=== PATIENT | male | born 1950 | race American Indian/Alaskan Native ===

== ENCOUNTER 2018-01-23 08:32 | Outpatient (CLI) | payer MEDICAID ==
--- NOTE | 2018-01-23 11:43 | Fluoroscopy Report ---
MODIFIED BARIUM SWALLOW History: dysphagia. Findings: Video radiography was provided by the radiologist for speech therapy to assess the swallowing mechanism. 1 fluoroscopic image was captured. Impression: Successful modified barium swallow.
== END 2018-01-23 08:33 | disposition home or self-care (01) ==
LOC: PT 08:32
PROVIDERS: ATTEND Family Medicine
DX: R13.10 Dysphagia, unspecified (principal); E11.9 Type 2 diabetes mellitus without complications; R41.82 Altered mental status, unspecified; F01.50 Vascular dementia, unspecified severity, without behavioral disturbance, psychotic disturbance, mood disturbance, and anxiety; E78.5 Hyperlipidemia, unspecified; I10 Essential (primary) hypertension; E07.9 Disorder of thyroid, unspecified; Z86.73 Personal history of transient ischemic attack (TIA), and cerebral infarction without residual deficits
CPT/HCPCS: 74230

== ENCOUNTER 2019-03-02 10:52 | Inpatient (IN) | payer MEDICARE ==
--- NOTE | 2019-03-02 11:24 | Emergency Department Report ---
HPI - General Time Seen by Provider: 03/02/19 11:15 - HPI HPI: 68-year-old -[place] male presents to the emergency department via EMS from his longterm at [facility] for the concern of some altered mental status and lethargy. The patient has a past medical history of non-insulin depended diabetes, CVA with left-sided hemiparesis, GERD, hyperlipidemia, hypertension. Apparently, per the longterm but through EMS, the patient usually wakes up at 8 AM and this time was sleeping much later. Once he was awake he still seemed sleepy or altered and was nonverbal at that time. Currently the patient is awake and is talking, but it is unknown whether he is at his baseline. Patient is able to tell me his name, date of and says he is unsure why he was sent in. Shortly after arrival, the patient's daughter came to bedside and says that he is altered in comparison to his baseline. She says that usually, he is constantly calling her on the phone, and when she visits he is able to hold a normal conversation and give details about himself and his symptoms. ED Past Medical Hx - Past Medical History Hx Hypertension: Yes Hx CVA: Yes Hx Diabetes: Yes Hx Renal Disease: No Hx Arthritis: No Hx Seizures: No Hx Asthma: No Additional medical history: Aphasia - Surgical History Hx Pacemaker: No Additional Surgical History: Hand surgery - Social History Smoking Status: Never Smoker - Medications Home Medications: Home Medications Medication Instructions Recorded Confirmed Last Taken Type Aspirin 325 mg PO QDAY 01/11/15 01/11/15 Unknown History Atorvastatin 20 mg PO QDAY 01/11/15 01/11/15 Unknown History Dulcolax tab 5 mg PO QHS 01/11/15 01/11/15 Unknown History Folic Acid 1 mg PO QDAY 01/11/15 01/11/15 Unknown History HumaLOG 1 dose SQ 3XW 01/11/15 01/11/15 Unknown History Hydrochlorothiazide 12.5 mg PO QDAY 01/11/15 01/11/15 Unknown History Metoclopramide 10 mg PO QDAY 01/11/15 01/11/15 Unknown History Multivitamin Liquid 5 ml PO QDAY 01/11/15 01/11/15 Unknown History Omeprazole 20 mg PO QDAY 01/11/15 01/11/15 Unknown History Thiamine 100 mg PO QDAY 01/11/15 01/11/15 Unknown History Zoloft 75 mg PO QDAY 01/11/15 01/11/15 Unknown History Memantine [Namenda] 5 mg PO QDAY #30 tablet 01/12/15 Unknown Rx ED Review of Systems ROS: Stated complaint: LETHARGIC/NONVERBAL Other details as noted in HPI Comment: Unobtainable due to pts medical conditions Physical Exam - Physical Exam Physical Exam: GENERAL: The patient is well-developed well-nourished. HENT: Normocephalic. Atraumatic. Patient has moist mucous membranes. EYES: Extraocular motions are intact. Pupils equal reactive to light bilaterally. NECK: Supple. Trachea is midline. CHEST/LUNGS: Clear to auscultation. There is no respiratory distress noted. HEART/CARDIOVASCULAR: Regular. There is no tachycardia. There is no murmur. ABDOMEN: Abdomen is soft, nontender. Patient has normal bowel sounds. There is no abdominal distention. SKIN: Skin is warm and dry. NEURO: The patient is awake and cooperative. The patient has no focal neurologic deficits. The patient is not very conversive but does tell me his name and date of . Chronic left-sided hemiparesis. MUSCULOSKELETAL: There are contractures of the left upper extremity and bilateral feet. ED Medical Decision Making - Lab Data Result diagrams: 03/02/19 11:28 03/02/19 11:28 - EKG Data -: EKG Interpreted by Me EKG shows normal: sinus rhythm, axis (left axis deviation), intervals, QRS comp lexes (LAFB), ST-T waves Rate: normal - EKG Data When compared to previous EKG there are: previous EKG unavailable Interpretation: other (sinus rhythm, left axis deviation, left anterior fascicular block) - Radiology Data Radiology results: report reviewed CT HEAD WITHOUT CONTRAST INDICATION / CLINICAL INFORMATION: Altered mental status. TECHNIQUE: All CT scans at this location are performed using CT dose reduction for ALARA by means of automated exposure control. COMPARISON: CT dated 01/11/15 FINDINGS: HEMORRHAGE: None. EXTRA-AXIAL SPACES: Mildly prominent likely related to cortical atrophy. VENTRICULAR SYSTEM: Mildly prominent but unchanged. CEREBRAL PARENCHYMA: Moderate periventricular white matter hypodensities likely represent microangiopathy. No change. No acute territorial infarct. MIDLINE SHIFT OR HERNIATION: None. CEREBELLUM / BRAINSTEM: No significant abnormality. ORBITS: Normal as visualized. SOFT TISSUES of HEAD: No significant abnormality. CALVARIUM: No significant abnormality. PARANASAL SINUSES / MASTOID AIR CELLS: Mild mucosal thickening in several ethmoid air cells. ADDITIONAL FINDINGS: None. IMPRESSION: 1. No acute intracranial abnormality. 2. Chronic and age-related findings. No significant change. RIGHT FOOT 3 VIEW(S) INDICATION / CLINICAL INFORMATION: right foot pain COMPARISON: None available. FINDINGS: BONES / JOINT(S): No acute fracture or subluxation. Pes cavus is suspected on this nonweightbearing study. Moderate midfoot degenerative arthrosis. Patient is subjectively osteopenic. SOFT TISSUES: No significant abnormality. ADDITIONAL FINDINGS: None. CHEST 1 VIEW 03/02/2019 11:35 AM INDICATION / CLINICAL INFORMATION: Altered mental status. Lethargy. COMPARISON: 10/15/11 FINDINGS: SUPPORT DEVICES: None. HEART / MEDIASTINUM: No significant abnormality. LUNGS / PLEURA: Left basilar parenchymal density may represent infiltrate such as pneumonia. No pneumothorax. ADDITIONAL FINDINGS: No significant additional findings. IMPRESSION: 1. Possible left lung base pneumonia. - Medical Decision Making This patient was sent in by the longterm facility after he appeared let hargic and altered to them. Prior to his daughter being at bedside, the patient was awake and was talking to me but does not say much. He has a chronic left- sided hemiparesis. However the daughter did show up and says that the patient is altered compared to his baseline as he is usually very conversive and oriented. CT scan of his head without contrast did not show any bleed, shift, mass, ischemia or any other acute processes. An x-ray was done of the right foot that shows a chronic deformity but no acute fracture or dislocation. Patient's labs show some mild renal insufficiency but do not show the etiology of his symptoms. Patient was given some IV fluid resuscitation and has been re evaluated and appears to be showing some improvement. He is more conversive with his daughter. We were attempting to obtain urine to test for a urinary tract infection as a possible reason for his transient lethargy or change in mental status. The patient does make urine as he wet to bed but we were unable to collect it and were unsuccessful with straight cath. Despite the fact the patient is showing some improvement, but he does have a history of previous CVA and did have some altered mental status. He will be admitted to the hospital for further evaluation and treatment of his extensive for admission by the hospitalist, Dr. Mtz. - Differential Diagnosis CVA, TIA, UTI, sepsis Critical Care Time: No Critical care attestation.: If time is entered above; I have spent that time in minutes in the direct care of this critically ill patient, excluding procedure time. ED Disposition Clinical Impression: History of CVA (cerebrovascular accident), Mild renal insufficiency, Hemiparesis affecting left side as late effect of cerebrovascular accident Altered mental status Qualifiers: Altered mental status type: unspecified Qualified Code(s): R41.82 - Altered mental status, unspecified Disposition: DC-[id number] OP ADMIT IP TO THIS HOSP Is pt being admited?: Yes Condition: Fair Referrals: MAMADOU RAO MD [Primary Care Provider] - 3-5 Days Time of Disposition: 19:33
[2019-03-02 11:43] LABS: Basophils % (Auto) 0.7 % (0.0-1.8); Eosinophils # (Auto) 0.1 K/mm3 (0.0-0.4); Eosinophils % (Auto) 1.9 % (0.0-4.3); Hematocrit 34.7 % (35.5-45.6); Hemoglobin 11.5 gm/dl (11.8-15.2); Lymphocytes # (Auto) 2.3 K/mm3 (1.2-5.4); Lymphocytes % (Auto) 31.9 % (13.4-35.0); Mean Corpuscular HGB Conc 33 % (32-34); Mean Corpuscular Volume 85 fl (84-94); Monocytes # (Auto) 0.8 K/mm3 (0.0-0.8); Monocytes % (Auto) 10.9 % (0.0-7.3); Platelet Count 287 K/mm3 (140-440); Red Blood Count 4.08 M/mm3 (3.65-5.03); Red Cell Distribution Width 14.2 % (13.2-15.2)
[2019-03-02 12:06] LABS: INR 1.01 (0.87-1.13); Partial Thromboplastin Time 24.7 Sec. (24.2-36.6)
[2019-03-02 12:07] LABS: Alanine Aminotransferase 7 units/L (7-56); Albumin 3.6 g/dL (3.9-5); BUN/Creatinine Ratio 11; Blood Urea Nitrogen 18 mg/dL (9-20); Calcium 9.5 mg/dL (8.4-10.2); Hemolysis Index 6
--- NOTE | 2019-03-02 12:26 | XRay Report ---
RIGHT FOOT 3 VIEW(S) INDICATION / CLINICAL INFORMATION: right foot pain COMPARISON: None available. FINDINGS: BONES / JOINT(S): No acute fracture or subluxation. Pes cavus is suspected on this nonweightbearing s tudy. Moderate midfoot degenerative arthrosis. Patient is subjectively osteopenic. SOFT TISSUES: No significant abnormality. ADDITIONAL FINDINGS: None. Signer Name: Glo Pacheco MD Signed: 03/02/2019 12:22 PM Workstation Name: [id number]
--- NOTE | 2019-03-02 12:53 | XRay Report ---
CHEST 1 VIEW 03/02/2019 11:35 AM INDICATION / CLINICAL INFORMATION: Altered mental status. Lethargy. COMPARISON: 10/15/11 FINDINGS: SUPPORT DEVICES: None. HEART / MEDIASTINUM: No significant abnormality. LUNGS / PLEURA: Left basilar parenchymal density may represent infiltrate such as pneumonia. No pneum othorax. ADDITIONAL FINDINGS: No significant additional findings. IMPRESSION: 1. Possible left lung base pneumonia. Signer Name: Glo Pacheco MD Signed: 03/02/2019 12:48 PM Workstation Name: [id number]
--- NOTE | 2019-03-02 13:36 | Cat Scan Report ---
CT HEAD WITHOUT CONTRAST INDICATION / CLINICAL INFORMATION: Altered mental status. TECHNIQUE: All CT scans at this location are performed using CT dose reduction for ALARA by means of automated e xposure control. COMPARISON: CT dated 01/11/15 FINDINGS: HEMORRHAGE: None. EXTRA-AXIAL SPACES: Mildly prominent likely related to cortical atrophy. VENTRICULAR SYSTEM: Mildly prominent but unchanged. CEREBRAL PARENCHYMA: Moderate periventricular white matter hypodensities likely represent microangiop athy. No change. No acute territorial infarct. MIDLINE SHIFT OR HERNIATION: None. CEREBELLUM / BRAINSTEM: No significant abnormality. ORBITS: Normal as visualized. SOFT TISSUES of HEAD: No significant abnormality. CALVARIUM: No significant abnormality. PARANASAL SINUSES / MASTOID AIR CELLS: Mild mucosal thickening in several ethmoid air cells. ADDITIONAL FINDINGS: None. IMPRESSION: 1. No acute intracranial abnormality. 2. Chronic and age-related findings. No significant change. Signer Name: Glo Pacheco MD Signed: 03/02/2019 1:32 PM Workstation Name: [id number]
[2019-03-02] MEDS ORDERED: NACL 0.9% 500 ML 500 ML IV ONE ×3 (13:48→18:40)
--- NOTE | 2019-03-02 18:50 | History and Physical Report ---
History of Present Illness Chief complaint: He is acting more confused History of present illness: 68 YO Male Half-Way Facility Resident at [facility] with HTN, CVA with LHP, DM,GERD, HLD presents to ED for evaluation. Pt is unable to provide history due to dysarthria. Pt history provided by daughter who is at bedside during exam and interview. As per daughter, the patient was in his usual state of health at bedtime around 2130 hrs. Pt was found by [facility] staff around 0800 hrs to have difficulty speaking, confused, with decreased movement. EMS notified and upon arrival the patient was found to have a neurologic deficit. A code stroke was called and the patient transported to [facility]. Pt seen and evaluated in ED and found to have symptoms consistent with CVA, Acute Kidney Injury, and hyperkalemia. Pt treated with supportive care. Pt initiated on CVA protocol and admitted to telemetry. Neurology consulted. Prior admission on 01/11/15 reviewed. All listed medication reconciled at time of admission. Past History Past Medical History: diabetes, GERD, hypertension, hyperlipidemia, stroke Past Surgical History: Other (Hand surgery) Social history: single. denies: smoking, alcohol abuse, prescription drug abuse Family history: hypertension Medications and Allergies Allergies Allergy/AdvReac Type Severity Reaction Status Date / Time No Known Allergies Allergy Verified 01/11/15 15:36 Home Medications Medication Instructions Recorded Confirmed Last Taken Type Aspirin 325 mg PO QDAY 01/11/15 03/03/19 Unknown History Atorvastatin 20 mg PO QDAY 01/11/15 03/03/19 Unknown History Dulcolax tab 5 mg PO QHS 01/11/15 03/03/19 Unknown History Folic Acid 1 mg PO QDAY 01/11/15 03/03/19 Unknown History HumaLOG 1 dose SQ 3XW 01/11/15 03/03/19 Unknown History Hydrochlorothiazide 12.5 mg PO QDAY 01/11/15 03/03/19 Unknown History Metoclopramide 10 mg PO QDAY 01/11/15 03/03/19 Unknown History Multivitamin Liquid 5 ml PO QDAY 01/11/15 03/03/19 Unknown History Omeprazole 20 mg PO QDAY 01/11/15 03/03/19 Unknown History Thiamine 100 mg PO QDAY 01/11/15 03/03/19 Unknown History Zoloft 75 mg PO QDAY 01/11/15 03/03/19 Unknown History Memantine [Namenda] 5 mg PO QDAY #30 tablet 01/12/15 03/03/19 Unknown Rx Active Meds: Active Medications Sodium Chloride (Nacl 0.9% 500 Ml) 500 mls @ 999 mls/hr IV ONCE ONE Stop: 03/02/19 19:10 Last Admin: 03/02/19 18:41 Dose: 999 mls/hr Documented by: Review of Systems ROS unobtainable: due to mental status Exam - Constitutional Vitals: Temp Pulse Resp BP Pulse Ox 97.9 F 92 H 18 143/82 94 03/02/19 11:13 03/02/19 18:38 03/02/19 18:38 03/02/19 18:38 03/02/19 18:38 General appearance: Present: mild distress - EENT Eyes: Present: PERRL ENT: hearing intact, clear oral mucosa, poor dentition - Neck Neck: Present: supple, normal ROM - Respiratory Respiratory effort: normal Respiratory: bilateral: CTA - Cardiovascular Heart Sounds: Present: S1 & S2. Absent: rub, click - Extremities Extremities: pulses symmetrical, No edema Peripheral Pulses: within normal limits - Abdominal General gastrointestinal: Present: soft, non-tender, non-distended, normal bowel sounds Male genitourinary: Present: normal - Integumentary Integumentary: Present: clear, warm, dry - Musculoskeletal Musculoskeletal: generalized weakness - Psychiatric Psychiatric: no appropriate mood/affect, no intact judgment & insight, no memory intact - Neurologic Neurologic: no CNII-XII intact, focal deficits, no moves all extremities, no gait normal Results - Labs CBC & Chem 7: 03/02/19 11:28 03/02/19 11:28 Labs: Abnormal lab results 03/02/19 03/02/19 03/02/19 Range/Units 11:28 11:28 11:28 Hgb 11.5 L (11.8-15.2) gm/dl Hct 34.7 L (35.5-45.6) % Snyder % (Auto) 10.9 H (0.0-7.3) % Sodium 133 L (137-145) mmol/L Potassium 5.1 H (3.6-5.0) mmol/L Chloride 95.3 L (98-107) mmol/L Creatinine 1.6 H (0.8-1.5) mg/dL Ammonia 24.0 L (25-60) umol/L Albumin 3.6 L (3.9-5) g/dL Assessment and Plan - Patient Problems (1) CVA (cerebral vascular accident) Current Visit: Yes Status: Acute Qualifiers: Laterality of affected vessel: unspecified Plan to address problem: CVA protocol: Admit to telemetry, CT Head, MRI brain, MRA brain, Echo, Carotid doppler, PT/OT/Speech Therapy, Neuro checks, lipid panel, antiplatelet therapy, neurology consult. (2) Encephalopathy Current Visit: Yes Status: Acute Plan to address problem: CT head, neuro checks, seizure precautions, supportive care, BMP (3) MICHELLE (acute kidney injury) Current Visit: Yes Status: Acute Plan to address problem: IVF resuscitation therapy, monitor uop q shift, (4) Diabetes Current Visit: Yes Status: Acute Plan to address problem: ADA diet as tolerate, Insulin, accucheck, hypoglycemia protocol (5) GERD (gastroesophageal reflux disease) Current Visit: Yes Status: Acute (6) DVT prophylaxis Current Visit: Yes Status: Acute Plan to address problem: PPI therapy, (7) DVT prophylaxis Current Visit: Yes Status: Acute Plan to address problem: SCD to BLE while in bed, Prophylactic heparin
[2019-03-02] MEDS ORDERED: ZOFRAN IV PRN (18:51)
[2019-03-02] MEDS ORDERED: SODIUM CHLORIDE FLUSH SYRINGE 10 ML IV PRN (18:51)
[2019-03-02] MEDS ORDERED: MILK OF MAGNESIA PO PRN (18:51)
[2019-03-02] MEDS ORDERED: DULCOLAX PR PRN (18:51)
[2019-03-02] MEDS ORDERED: TYLENOL PO PRN (18:51)
[2019-03-02] MEDS ORDERED: REGLAN PO PRN (18:51)
[2019-03-02] MEDS ORDERED: PROVENTIL IH PRN (18:51)
[2019-03-02] MEDS ORDERED: PHENERGAN PR PRN (18:51)
[2019-03-02] MEDS ORDERED: DULCOLAX 5 MG PO SCH (22:00)
[2019-03-03 05:55] LABS: Chol/HDL Ratio 3.29 %
[2019-03-03 08:48] LABS: Bacteria,Urine 1+ /HPF (Negative); Bilirubin,Urine NEG (Negative); Blood,Urine LG (Negative); Calcium Oxalate Crystals,Urine FEW; Color,Urine Yellow (Yellow); Protein,Urine <15 mg/dL mg/dL (Negative)
[2019-03-03] MEDS ORDERED: NON-FORMULARY (Folic Acid 1 MG) PO SCH (10:00)
[2019-03-03] MEDS ORDERED: MULTIVITAMIN PO SCH (10:00)
[2019-03-03] MEDS ORDERED: SERTRALINE PO SCH (10:00)
[2019-03-03] MEDS ORDERED: NON-FORMULARY (Metoclopramide 10 MG) PO SCH (10:00)
[2019-03-03] MEDS ORDERED: NON-FORMULARY (Thiamine 100 MG) PO SCH (10:00)
[2019-03-03] MEDS ORDERED: NON-FORMULARY (Omeprazole 20 MG) PO SCH (10:00)
[2019-03-03] MEDS: ASPIRIN PO SCH (10:13)
[2019-03-03] MEDS: VITAMIN B-1 PO SCH (10:13)
[2019-03-03] MEDS: ZOLOFT PO SCH (10:13)
[2019-03-03] MEDS: PROTONIX PO SCH (10:13)
[2019-03-03] MEDS: FOLVITE PO SCH (10:13)
[2019-03-03] MEDS: REGLAN PO SCH (10:13)
[2019-03-03] MEDS: NAMENDA PO SCH (10:13)
[2019-03-03] MEDS: HEPARIN SUB-Q SCH ×2 (10:14→21:48)
[2019-03-03] MEDS: Centrum Liq PO SCH (10:14)
--- NOTE | 2019-03-03 11:27 | Progress Note ---
Assessment and Plan Assessment and plan: CVA/TIA. Follow-up MRI/MRA brain, echocardiogram and carotid Dopplers. PT/OT evaluation pending. Neurology consultation. Encephalopathy. Resolved. Patient appears to be back to baseline. Acute kidney injury. Etiology secondary to vasomotor nephropathy/dehydration. Baseline creatinine 0.6. Continue IV fluid hydration and follow-up BMP in the morning. If no improvement, consider renal ultrasound. Diabetes mellitus type 2. Continue Accu-Cheks and sliding scale insulin. GERD. Continue PPI. History Interval history: Patient's family reports patient is back to his baseline with regards to his neurological status. Hospitalist Physical - Constitutional Vitals: Temp Pulse Resp BP Pulse Ox 97.4 F L 87 20 117/75 98 03/03/19 03:44 03/03/19 03:44 03/03/19 03:44 03/03/19 03:44 03/03/19 03:44 General appearance: Present: no acute distress - EENT Eyes: Present: PERRL, EOM intact ENT: hearing intact, clear oral mucosa, dentition normal - Neck Neck: Present: supple, normal ROM - Respiratory Respiratory effort: normal Respiratory: bilateral: CTA - Cardiovascular Rhythm: regular Heart Sounds: Present: S1 & S2. Absent: gallop, rub - Extremities Extremities: no ischemia, No edema, Full ROM - Abdominal General gastrointestinal: soft, non-tender, non-distended, normal bowel sounds - Integumentary Integumentary: Present: clear, warm, dry - Neurologic Neurologic: CNII-XII intact, moves all extremities, other (left hemiparesis--residual from previous CVA) Results - Labs CBC & Chem 7: 03/02/19 11:28 03/02/19 11:28 Labs: Laboratory Last Values WBC 7.3 K/mm3 (4.5-11.0) 03/02/19 11:28 RBC 4.08 M/mm3 (3.65-5.03) 03/02/19 11:28 Hgb 11.5 gm/dl (11.8-15.2) L 03/02/19 11:28 Hct 34.7 % (35.5-45.6) L 03/02/19 11:28 MCV 85 fl (84-94) 03/02/19 11:28 MCH 28 pg (28-32) 03/02/19 11:28 MCHC 33 % (32-34) 03/02/19 11:28 RDW 14.2 % (13.2-15.2) 03/02/19 11:28 Plt Count 287 K/mm3 (140-440) 03/02/19 11:28 Lymph % (Auto) 31.9 % (13.4-35.0) 03/02/19 11:28 Williams % (Auto) 10.9 % (0.0-7.3) H 03/02/19 11:28 Eos % (Auto) 1.9 % (0.0-4.3) 03/02/19 11:28 Baso % (Auto) 0.7 % (0.0-1.8) 03/02/19 11:28 Lymph # 2.3 K/mm3 (1.2-5.4) 03/02/19 11:28 Williams # 0.8 K/mm3 (0.0-0.8) 03/02/19 11:28 Eos # 0.1 K/mm3 (0.0-0.4) 03/02/19 11:28 Baso # 0.0 K/mm3 (0.0-0.1) 03/02/19 11:28 Seg Neutrophils % 54.6 % (40.0-70.0) 03/02/19 11:28 Seg Neutrophils # 4.0 K/mm3 (1.8-7.7) 03/02/19 11:28 PT 13.0 Sec. (12.2-14.9) 03/02/19 11:28 INR 1.01 (0.87-1.13) 03/02/19 11:28 APTT 24.7 Sec. (24.2-36.6) 03/02/19 11:28 Sodium 133 mmol/L (137-145) L 03/02/19 11:28 Potassium 5.1 mmol/L (3.6-5.0) H 03/02/19 11:28 Chloride 95.3 mmol/L (98-107) L 03/02/19 11:28 Carbon Dioxide 25 mmol/L (22-30) 03/02/19 11:28 18 mmol/L 03/02/19 11:28 BUN 18 mg/dL (9-20) 03/02/19 11:28 1.6 mg/dL (0.8-1.5) H 03/02/19 11:28 Estimated GFR 52 ml/min 03/02/19 11:28 11 % 03/02/19 11:28 Glucose 85 mg/dL (75-100) 03/02/19 11:28 Calcium 9.5 mg/dL (8.4-10.2) 03/02/19 11:28 0.90 mg/dL (0.1-1.2) 03/02/19 11:28 AST 14 units/L (5-40) 03/02/19 11:28 ALT 7 units/L (7-56) 03/02/19 11:28 74 units/L (35-129) 03/02/19 11:28 24.0 umol/L (25-60) L 03/02/19 11:28 < 0.010 ng/mL (0.00-0.029) 03/02/19 11:28 6.8 g/dL (6.3-8.2) 03/02/19 11:28 3.6 g/dL (3.9-5) L 03/02/19 11:28 1.1 % 03/02/19 11:28 Triglycerides 76 mg/dL (2-149) 03/03/19 04:24 Cholesterol 112 mg/dL (50-199) 03/03/19 04:24 75 mg/dL (50-130) 03/03/19 04:24 34 mg/dL (40-59) L 03/03/19 04:24 3.29 % 03/03/19 04:24 TSH 1.010 mlU/mL (0.270-4.200) 03/02/19 11:28 Yellow (Yellow) 03/03/19 07:49 Slightly-cloudy (Clear) 03/03/19 07:49 6.0 (5.0-7.0) 03/03/19 07:49 Ur Specific [place] 1.013 (1.003-1.030) 03/03/19 07:49 <15 mg/dl mg/dL (Negative) 03/03/19 07:49 Neg mg/dL (Negative) 03/03/19 07:49 Neg mg/dL (Negative) 03/03/19 07:49 Lg (Negative) 03/03/19 07:49 Neg (Negative) 03/03/19 07:49 Neg (Negative) 03/03/19 07:49 2.0 mg/dL (<2.0) 03/03/19 07:49 Ur Leukocyte Esterase Lg (Negative) 03/03/19 07:49 5.0 /HPF (0.0-6.0) 03/03/19 07:49 33.0 /HPF (0.0-6.0) 03/03/19 07:49 U Epithel Cells (Auto) 2.0 /HPF (0-13.0) 03/03/19 07:49 1+ /HPF (Negative) 03/03/19 07:49 Calcium Oxalate Crystal Few 03/03/19 07:49 Active Medications - Current Medications Current Medications: Generic Name Dose Route Start Last Admin Trade Name Freq PRN Reason Stop Dose Admin Acetaminophen 650 mg 03/02/19 18:51 Tylenol PO Q4H PRN Pain, Mild (1-3) Albuterol 2.5 mg 03/02/19 18:51 Proventil IH Q3H PRN Shortness Of Breath Aspirin 325 mg 03/03/19 10:00 03/03/19 10:13 Aspirin PO 325 mg QDAY YOHANA Administration Atorvastatin Calcium 40 mg 03/02/19 22:00 03/02/19 22:28 Lipitor PO 40 mg QHS YOHANA Administration Bisacodyl 10 mg 03/02/19 18:51 Dulcolax [place] QDAY PRN Constipation Folic Acid 1 mg 03/03/19 10:00 03/03/19 10:13 Folvite PO 1 mg DAILY YOHANA Administration Heparin Sodium (Porcine) 5,000 unit 03/03/19 10:00 03/03/19 10:14 Heparin SUB-Q 5,000 unit Q12HR YOHANA Administration Magnesium Hydroxide 30 ml 03/02/19 18:51 Milk Of Magnesia PO Q4H PRN Constipation Memantine 5 mg 03/03/19 10:00 03/03/19 10:13 Namenda PO 5 mg QDAY YOHANA Administration Metoclopramide HCl 10 mg 03/02/19 18:51 Reglan PO Q6H PRN Nausea And Vomiting Metoclopramide HCl 10 mg 03/03/19 10:00 03/03/19 10:13 Reglan PO 10 mg QDAY YOHANA Administration Multivitamins 5 ml 03/03/19 10:00 03/03/19 10:14 Centrum Liq PO 5 ml QDAY YOHANA Administration Ondansetron HCl 4 mg 03/02/19 18:51 Zofran IV Q8H PRN Nausea And Vomiting Pantoprazole Sodium 20 mg 03/03/19 10:00 03/03/19 10:13 Protonix PO 20 mg QDAY YOHANA Administration Promethazine HCl 25 mg 03/02/19 18:51 Phenergan [place] Q6H PRN Nausea And Vomiting Sertraline HCl 75 mg 03/03/19 10:00 03/03/19 10:13 Zoloft PO 75 mg QDAY YOHANA Administration Sodium Chloride 10 ml 03/02/19 18:51 Sodium Chloride Flush Syringe 10 Ml IV PRN PRN LINE FLUSH Thiamine HCl 100 mg 03/03/19 10:00 03/03/19 10:13 Vitamin B-1 PO 100 mg QDAY YOHANA Administration
--- NOTE | 2019-03-03 11:30 | Vascular Lab Report ---
"DUPLEX DOPPLER ULTRASOUND CAROTID, BILATERAL INDICATION / CLINICAL INFORMATION: stroke. Prior stroke with hemiparesis. Hypertension and diabetes. Altered mental status. Dysarthria. COMPARISON: None available. FINDINGS: RIGHT CAROTID PLAQUE ESTIMATE: > 50% CCA velocity: 84 cm/sec. ICA peak systolic velocity: 162 cm/sec. ICA/CCA PSV Ratio: 1.9 Right Vertebral Artery: Antegrade flow. LEFT CAROTID PLAQUE ESTIMATE: > 50% CCA velocity: 41 cm/sec. ICA peak systolic velocity: 39 cm/sec. Proximal ICA appears occluded. ICA/CCA PSV Ratio: 1.0 Left Vertebral Artery: Antegrade flow. IMPRESSION: 1. Right Internal Carotid Artery: 50-69% diameter stenosis. 2. Left Internal Carotid Artery: Occlusion of the proximal left ICA with reconstitution of the mid to distal left ICA. 3. CTA versus MRA of the neck may be helpful for further evaluation of the left carotid artery. Velocity criteria are extrapolated from diameter data as defined by the Society of Radiologists in [facility] Consensus Conference, Radiology 2003; 229;340-346. Degree of || ICA PSV || Plaque || ICA/CCA Stenosis (%) || (cm/sec) || estimate (%) || PSV Ratio Normal ............. || ...<125........... || ...None......... || ...<2.0 <50................... || ...<125........... || ......<50......... || ...<2.0 50-69................ || ..125-230...... || ......>50......... || 2.0-4.0 >70 but <100... || >230.............. || .......>50........ || ...>4.0 Near occlusion || High/low/none || ...visible....... || variable Total occlusion || ....None........... || ..no lumen... || ....N/A Signer Name: Glo Pacheco MD Signed: 03/03/2019 11:26 AM Workstation Name: [id number]"
--- NOTE | 2019-03-03 13:02 | Progress Note ---
Subjective Date of service: 03/03/19 Interval history: suspect recurrent stroke a/w lethargy and increased weakness on the left side there is hx of two perior strokes spoke to family Thanks Objective - Vital Sign Vital Signs - 12hr 03/03/19 03/03/19 03:44 07:27 Temperature 97.4 F L Pulse Rate 87 78 Respiratory 20 Rate Blood Pressure 117/75 O2 Sat by Pulse 98 Oximetry - Laboratory Findings CBC and BMP: 03/02/19 11:28 03/02/19 11:28 Abnormal Lab Findings: Abnormal Labs 03/02/19 03/02/19 03/02/19 11:28 11:28 11:28 Hgb 11.5 L Hct 34.7 L [place] % (Auto) 10.9 H Sodium 133 L Potassium 5.1 H Chloride 95.3 L Creatinine 1.6 H Ammonia 24.0 L Albumin 3.6 L HDL Cholesterol 03/03/19 04:24 Hgb Hct [place] % (Auto) Sodium Potassium Chloride Creatinine Ammonia Albumin HDL Cholesterol 34 L
[2019-03-04] MEDS: ZOLOFT PO SCH (09:22)
[2019-03-04] MEDS: NAMENDA PO SCH (09:22)
[2019-03-04] MEDS: REGLAN PO SCH (09:22)
[2019-03-04] MEDS: PROTONIX PO SCH (09:22)
[2019-03-04] MEDS: ASPIRIN PO SCH (09:22)
[2019-03-04] MEDS: Centrum Liq PO SCH (09:22)
[2019-03-04] MEDS: FOLVITE PO SCH (09:22)
[2019-03-04] MEDS: VITAMIN B-1 PO SCH (09:22)
[2019-03-04] MEDS: HEPARIN SUB-Q SCH ×2 (09:23→22:08)
--- NOTE | 2019-03-04 10:35 | Progress Note ---
Assessment and Plan Assessment and plan: CVA/TIA. Follow-up MRI/MRA brain, echocardiogram and carotid Dopplers revealed right internal carotid artery 50-69% and left internal carotid artery occlusion proximally with reconstitution of the mid to distal left ICA. Follow-up MRA of neck. PT/OT evaluation pending. Neurology believes that this is a recurrence of a CVA. Left ICA stenosis. Follow-up MRA of neck. Consider vascular consultation. Encephalopathy. Resolved. Patient appears to be back to baseline. Acute kidney injury. Etiology secondary to vasomotor nephropathy/dehydration. Baseline creatinine 0.6. Continue IV fluid hydration and follow-up BMP in the morning. If no improvement, consider renal ultrasound. Diabetes mellitus type 2. Continue Accu-Cheks and sliding scale insulin. GERD. Continue PPI. History Interval history: Patient's family reports patient is back to his baseline with regards to his neurological status. Hospitalist Physical - Constitutional Vitals: Temp Pulse Resp BP Pulse Ox 98.1 F 69 18 125/64 100 03/04/19 07:51 03/04/19 07:51 03/04/19 07:51 03/04/19 07:51 03/04/19 07:51 General appearance: Present: no acute distress - EENT Eyes: Present: PERRL, EOM intact ENT: hearing intact, clear oral mucosa, dentition normal - Neck Neck: Present: supple, normal ROM - Respiratory Respiratory effort: normal Respiratory: bilateral: CTA - Cardiovascular Rhythm: regular Heart Sounds: Present: S1 & S2. Absent: gallop, rub - Extremities Extremities: no ischemia, No edema, Full ROM - Abdominal General gastrointestinal: soft, non-tender, non-distended, normal bowel sounds - Integumentary Integumentary: Present: clear, warm, dry - Neurologic Neurologic: CNII-XII intact, moves all extremities Results - Labs CBC & Chem 7: 03/02/19 11:28 03/02/19 11:28 Labs: Laboratory Last Values WBC 7.3 K/mm3 (4.5-11.0) 03/02/19 11:28 RBC 4.08 M/mm3 (3.65-5.03) 03/02/19 11:28 Hgb 11.5 gm/dl (11.8-15.2) L 03/02/19 11:28 Hct 34.7 % (35.5-45.6) L 03/02/19 11:28 MCV 85 fl (84-94) 03/02/19 11:28 MCH 28 pg (28-32) 03/02/19 11:28 MCHC 33 % (32-34) 03/02/19 11:28 RDW 14.2 % (13.2-15.2) 03/02/19 11:28 Plt Count 287 K/mm3 (140-440) 03/02/19 11:28 Lymph % (Auto) 31.9 % (13.4-35.0) 03/02/19 11:28 [place] % (Auto) 10.9 % (0.0-7.3) H 03/02/19 11:28 Eos % (Auto) 1.9 % (0.0-4.3) 03/02/19 11:28 Baso % (Auto) 0.7 % (0.0-1.8) 03/02/19 11:28 Lymph # 2.3 K/mm3 (1.2-5.4) 03/02/19 11:28 [place] # 0.8 K/mm3 (0.0-0.8) 03/02/19 11:28 Eos # 0.1 K/mm3 (0.0-0.4) 03/02/19 11:28 Baso # 0.0 K/mm3 (0.0-0.1) 03/02/19 11:28 Seg Neutrophils % 54.6 % (40.0-70.0) 03/02/19 11:28 Seg Neutrophils # 4.0 K/mm3 (1.8-7.7) 03/02/19 11:28 PT 13.0 Sec. (12.2-14.9) 03/02/19 11:28 INR 1.01 (0.87-1.13) 03/02/19 11:28 APTT 24.7 Sec. (24.2-36.6) 03/02/19 11:28 Sodium 133 mmol/L (137-145) L 03/02/19 11:28 Potassium 5.1 mmol/L (3.6-5.0) H 03/02/19 11:28 Chloride 95.3 mmol/L (98-107) L 03/02/19 11:28 Carbon Dioxide 25 mmol/L (22-30) 03/02/19 11:28 18 mmol/L 03/02/19 11:28 BUN 18 mg/dL (9-20) 03/02/19 11:28 1.6 mg/dL (0.8-1.5) H 03/02/19 11:28 Estimated GFR 52 ml/min 03/02/19 11:28 11 % 03/02/19 11:28 Glucose 85 mg/dL (75-100) 03/02/19 11:28 POC Glucose 91 (70-105) 03/03/19 12:10 Calcium 9.5 mg/dL (8.4-10.2) 03/02/19 11:28 0.90 mg/dL (0.1-1.2) 03/02/19 11:28 AST 14 units/L (5-40) 03/02/19 11:28 ALT 7 units/L (7-56) 03/02/19 11:28 74 units/L (35-129) 03/02/19 11:28 24.0 umol/L (25-60) L 03/02/19 11:28 < 0.010 ng/mL (0.00-0.029) 03/02/19 11:28 6.8 g/dL (6.3-8.2) 03/02/19 11:28 3.6 g/dL (3.9-5) L 03/02/19 11:28 1.1 % 03/02/19 11:28 Triglycerides 76 mg/dL (2-149) 03/03/19 04:24 Cholesterol 112 mg/dL (50-199) 03/03/19 04:24 75 mg/dL (50-130) 03/03/19 04:24 34 mg/dL (40-59) L 03/03/19 04:24 3.29 % 03/03/19 04:24 TSH 1.010 mlU/mL (0.270-4.200) 03/02/19 11:28 Yellow (Yellow) 03/03/19 07:49 Slightly-cloudy (Clear) 03/03/19 07:49 6.0 (5.0-7.0) 03/03/19 07:49 Ur Specific [place] 1.013 (1.003-1.030) 03/03/19 07:49 <15 mg/dl mg/dL (Negative) 03/03/19 07:49 Neg mg/dL (Negative) 03/03/19 07:49 Neg mg/dL (Negative) 03/03/19 07:49 Lg (Negative) 03/03/19 07:49 Neg (Negative) 03/03/19 07:49 Neg (Negative) 03/03/19 07:49 2.0 mg/dL (<2.0) 03/03/19 07:49 Ur Leukocyte Esterase Lg (Negative) 03/03/19 07:49 5.0 /HPF (0.0-6.0) 03/03/19 07:49 33.0 /HPF (0.0-6.0) 03/03/19 07:49 U Epithel Cells (Auto) 2.0 /HPF (0-13.0) 03/03/19 07:49 1+ /HPF (Negative) 03/03/19 07:49 Calcium Oxalate Crystal Few 03/03/19 07:49 Active Medications - Current Medications Current Medications: Generic Name Dose Route Start Last Admin Trade Name Freq PRN Reason Stop Dose Admin Acetaminophen 650 mg 03/02/19 18:51 Tylenol PO Q4H PRN Pain, Mild (1-3) Albuterol 2.5 mg 03/02/19 18:51 Proventil IH Q3H PRN Shortness Of Breath Aspirin 325 mg 03/03/19 10:00 03/04/19 09:22 Aspirin PO 325 mg QDAY YOHANA Administration Atorvastatin Calcium 40 mg 03/02/19 22:00 03/03/19 21:47 Lipitor PO 40 mg QHS YOHANA Administration Bisacodyl 10 mg 03/02/19 18:51 Dulcolax [place] QDAY PRN Constipation Folic Acid 1 mg 03/03/19 10:00 03/04/19 09:22 Folvite PO 1 mg DAILY YOHANA Administration Heparin Sodium (Porcine) 5,000 unit 03/03/19 10:00 03/04/19 09:23 Heparin SUB-Q 5,000 unit Q12HR YOHANA Administration Magnesium Hydroxide 30 ml 03/02/19 18:51 Milk Of Magnesia PO Q4H PRN Constipation Memantine 5 mg 03/03/19 10:00 03/04/19 09:22 Namenda PO 5 mg QDAY YOHANA Administration Metoclopramide HCl 10 mg 03/02/19 18:51 Reglan PO Q6H PRN Nausea And Vomiting Metoclopramide HCl 10 mg 03/03/19 10:00 03/04/19 09:22 Reglan PO 10 mg QDAY YOHANA Administration Multivitamins 5 ml 03/03/19 10:00 03/04/19 09:22 Centrum Liq PO 5 ml QDAY YOHANA Administration Ondansetron HCl 4 mg 03/02/19 18:51 Zofran IV Q8H PRN Nausea And Vomiting Pantoprazole Sodium 20 mg 03/03/19 10:00 03/04/19 09:22 Protonix PO 20 mg QDAY YOHANA Administration Promethazine HCl 25 mg 03/02/19 18:51 Phenergan [place] Q6H PRN Nausea And Vomiting Sertraline HCl 75 mg 03/03/19 10:00 03/04/19 09:22 Zoloft PO 75 mg QDAY YOHANA Administration Sodium Chloride 10 ml 03/02/19 18:51 Sodium Chloride Flush Syringe 10 Ml IV PRN PRN LINE FLUSH Thiamine HCl 100 mg 03/03/19 10:00 03/04/19 09:22 Vitamin B-1 PO 100 mg QDAY YOHANA Administration
[2019-03-04 11:41] LABS: BUN/Creatinine Ratio 10; Blood Urea Nitrogen 9 mg/dL (9-20); Calcium 8.8 mg/dL (8.4-10.2); Hemolysis Index 30
--- NOTE | 2019-03-04 15:46 | Magnetic Resonance Report ---
MRA HEAD WITHOUT CONTRAST HISTORY: Left-sided weakness COMPARISON: MR a head 01/12/2015 TECHNIQUE: Routine MRA of the head performed. 3-D/MIP reformats postprocessed. CONTRAST: none Limitations: Patient motion artifact is limiting factor on this examination. This is an essentially n ondiagnostic FINDINGS: MRA HEAD: OVERVIEW: There is no evidence of intracranial stenosis or large vessel occlusion. There is no eviden ce of aneurysm or other vascular malformation. As noted above patient motion artifact degrades image quality significantly. This is an essentially nondiagnostic examination. IMPRESSION: 1. Limited study secondary to patient motion artifact. Signer Name: Liban Panda MD Signed: 03/04/2019 3:42 PM Workstation Name: [id number]
--- NOTE | 2019-03-04 15:52 | Magnetic Resonance Report ---
MRI BRAIN WITHOUT CONTRAST INDICATION / CLINICAL INFORMATION: stroke. Left-sided weakness. TECHNIQUE: Multiplanar, multisequence MR images of the brain were obtained. COMPARISON: MRI brain 01/12/[address] 03/02/2019. LIMITATIONS: Study is significantly limited by administration motion artifact which degrades image qu ality on multiple scan sequences. FINDINGS: BRAIN / INTRACRANIAL CONTENTS: Moderate parenchymal volume loss is demonstrated. Dilatation of the co rtical sulci and ventricular system is noted. This is greater than expected for the the patient's sta elier age of 68. Periventricular and deep white matter hyperintensities noted consistent with age-relat ed microvascular ischemic changes. Multiple remote small deep infarctions are observed in the ganglio capsular distribution bilaterally. There is no indication of remote or recent cortical infarction. Th ere is no mass effect. No evidence of intracranial hemorrhage or extra-axial fluid collection is seen . There is no indication of remote cortical infarction. Diffusion weighted scans are negative. There is no indication of acute ischemic injury. The brainstem and cerebellum have an unremarkable appearance. CRANIOCERVICAL JUNCTION: No abnormalities are identified at the craniocervical junction. VASCULAR FLOW-VOIDS: Normal flow-voids are present within the major intracranial vessels. ORBITS: Evaluation is limited secondary to patient motion artifact. SINUSES / MASTOIDS: Decreased size of the right maxillary sinus is noted since prior study 01/12/2015. Increasing endophthalmus is noted on the right.. Consider possible silent sinus syndrome if there is no history of prior trauma.. IMPRESSION: 1. Limited study secondary to patient motion artifact. 2. Parenchymal atrophy greater than expected for age. 3. Multiple remote bilateral gangliocapsular small deep infarctions. 3. No indication of acute or subacute infarction. Signer Name: Liban Panda MD Signed: 03/04/2019 3:47 PM Workstation Name: [id number]
--- NOTE | 2019-03-04 15:55 | Consultation ---
History of Present Illness - Reason for Consult Consult date: 03/04/19 Carotid stenosis - History of Present Illness 68 YO Male [facility] Facility Resident at [facility] with HTN, CVA with LHP, DM,GERD, HLD presents to ED for evaluation. Pt is unable to provide history due to dysarthria. Pt history provided by daughter who is at bedside during exam and interview. As per daughter, the patient was in his usual state of health at bedtime around 2130 hrs. Pt was found by [facility] staff around 0800 hrs to have difficulty speaking, confused, with decreased movement. EMS notified and upon arrival the patient was found to have a neurologic deficit. A code stroke was called and the patient transported to [facility]. Pt seen and evaluated in ED and found to have symptoms consistent with CVA, Acute Kidney Injury, and hyperkalemia. Pt treated with supportive care. Pt initiated on CVA protocol and admitted to telemetry. Neurology consulted. Prior admission on 01/11/15 reviewed. All listed medication reconciled at time of admission. Vascular consulted for left ICA occlusion and right ICA 50-79% stenosis in the setting of AMS which has resolved and baseline quadriparesis. AMS has resolved which is similar to 2015 admission. Patient is not a surgical candidate given his baseline quadriparesis. Patient is A&O right now with baseline status. Past History Past Medical History: diabetes, GERD, hypertension, hyperlipidemia, stroke Past Surgical History: Other (Hand surgery) Social history: single. denies: smoking, alcohol abuse, prescription drug abuse Family history: hypertension Medications and Allergies Allergies Allergy/AdvReac Type Severity Reaction Status Date / Time No Known Allergies Allergy Verified 01/11/15 15:36 Home Medications Medication Instructions Recorded Confirmed Last Taken Type Aspirin 325 mg PO QDAY 01/11/15 03/03/19 Unknown History Atorvastatin 20 mg PO QDAY 01/11/15 03/03/19 Unknown History Dulcolax tab 5 mg PO QHS 01/11/15 03/03/19 Unknown History Folic Acid 1 mg PO QDAY 01/11/15 03/03/19 Unknown History HumaLOG 1 dose SQ 3XW 01/11/15 03/03/19 Unknown History Hydrochlorothiazide 12.5 mg PO QDAY 01/11/15 03/03/19 Unknown History Metoclopramide 10 mg PO QDAY 01/11/15 03/03/19 Unknown History Multivitamin Liquid 5 ml PO QDAY 01/11/15 03/03/19 Unknown History Omeprazole 20 mg PO QDAY 01/11/15 03/03/19 Unknown History Thiamine 100 mg PO QDAY 01/11/15 03/03/19 Unknown History Zoloft 75 mg PO QDAY 01/11/15 03/03/19 Unknown History Memantine [Namenda] 5 mg PO QDAY #30 tablet 01/12/15 03/03/19 Unknown Rx Active Meds: Active Medications Acetaminophen (Tylenol) 650 mg PO Q4H PRN PRN Reason: Pain, Mild (1-3) Albuterol (Proventil) 2.5 mg IH Q3H PRN PRN Reason: Shortness Of Breath Aspirin (Aspirin) 325 mg PO QDAY [facility] Last Admin: 03/04/19 09:22 Dose: 325 mg Documented by: Atorvastatin Calcium (Lipitor) 40 mg PO QHS [facility] Last Admin: 03/03/19 21:47 Dose: 40 mg Documented by: Bisacodyl (Dulcolax) 10 mg [place] QDAY PRN PRN Reason: Constipation Folic Acid (Folvite) 1 mg PO DAILY [facility] Last Admin: 03/04/19 09:22 Dose: 1 mg Documented by: Heparin Sodium (Porcine) (Heparin) 5,000 unit SUB-Q Q12HR [facility] Last Admin: 03/04/19 09:23 Dose: 5,000 unit Documented by: Magnesium Hydroxide (Milk Of Magnesia) 30 ml PO Q4H PRN PRN Reason: Constipation Memantine (Namenda) 5 mg PO QDAY [facility] Last Admin: 03/04/19 09:22 Dose: 5 mg Documented by: Metoclopramide HCl (Reglan) 10 mg PO Q6H PRN PRN Reason: Nausea And Vomiting Metoclopramide HCl (Reglan) 10 mg PO QDAY [facility] Last Admin: 03/04/19 09:22 Dose: 10 mg Documented by: Multivitamins (Centrum Liq) 5 ml PO QDAY [facility] Last Admin: 03/04/19 09:22 Dose: 5 ml Documented by: Ondansetron HCl (Zofran) 4 mg IV Q8H PRN PRN Reason: Nausea And Vomiting Pantoprazole Sodium (Protonix) 20 mg PO QDAY [facility] Last Admin: 03/04/19 09:22 Dose: 20 mg Documented by: Promethazine HCl (Phenergan) 25 mg [place] Q6H PRN PRN Reason: Nausea And Vomiting Sertraline HCl (Zoloft) 75 mg PO QDAY [facility] Last Admin: 03/04/19 09:22 Dose: 75 mg Documented by: Sodium Chloride (Sodium Chloride Flush Syringe 10 Ml) 10 ml IV PRN PRN PRN Reason: LINE FLUSH Thiamine HCl (Vitamin B-1) 100 mg PO QDAY [facility] Last Admin: 03/04/19 09:22 Dose: 100 mg Documented by: Review of Systems All systems: negative (see HPI) Exam - Constitutional Vitals: Temp Pulse Resp BP Pulse Ox 97.5 F L 69 18 128/65 100 03/04/19 11:37 03/04/19 07:51 03/04/19 11:37 03/04/19 11:37 03/04/19 07:51 General appearance: Present: no acute distress - EENT ENT: hearing intact - Respiratory Respiratory effort: normal - Musculoskeletal Musculoskeletal: other (left side hemiplegia and right side hemiparesis) - Psychiatric Psychiatric: cooperative Results - Labs CBC & Chem 7: 03/02/19 11:28 03/04/19 11:01 Labs: Abnormal lab results 03/04/19 Range/Units 11:01 Sodium 133 L (137-145) mmol/L Chloride 96.6 L (98-107) mmol/L Glucose 111 H (75-100) mg/dL - Imaging and Cardiology MRI - head: report reviewed, image reviewed Venous US: report reviewed, image reviewed (carotid) Assessment and Plan 68 year old male with underlying carotid artery stenosis and AMS which has resolved. MRI demonstrates no acute CVA. I suspect the carotid findings are old given the lack of acute CVA on ultrasound and return to baseline of patient's AMS. I'll order a CTA of the head and neck for further evaluation. AMS has returned to baseline. Functional strength status is back to baseline. Patient has quadriparesis and is not a surgical candidate. Suspect we will recommend optimal medical therapy, but will await CTA results.
--- NOTE | 2019-03-04 15:56 | Magnetic Resonance Report ---
MRA NECK WITHOUT CONTRAST HISTORY: Left-sided weakness COMPARISON: none TECHNIQUE: Routine MRA neck performed. 3-D/MIP reformats postprocessed. Percentage stenosis is dete rmined by direct quantitative measurements of distal internal carotid artery diameter compared with n ormal reference segments or by criteria similar to NASCET where applicable. CONTRAST: none FINDINGS: MRA NECK: Aortic arch: The aorta and origins of the great vessels are poorly evaluated on this noncontrast stud y. Vertebral arteries: Limited study secondary to patient motion artifact. Right vertebral artery is dom inant. Right carotid artery: Evaluation of the right carotid bifurcation reveals a 40% stenosis at the origi n of the R ICA. Left carotid artery: Evaluation of the left carotid bifurcation is remarkable for a screening sulci a nd short segment flow consistent with high-grade stenosis on the order of 80% in severity. SUMMARY:The degree of stenosis, if any, is determined utilizing NASCET like criteria. In this case th ere is a 40% stenosis at the right carotid bifurcation and an 80% stenosis at the proximal LICA. IMPRESSION: 1. Limited study secondary to patient motion artifact. 2. Evaluation of the carotid bifurcations reveals a 40% stenosis at the right carotid bifurcation and 80% stenosis at the origin of the LICA. Signer Name: Liban Panda MD Signed: 03/04/2019 3:51 PM Workstation Name: [id number]
--- NOTE | 2019-03-04 19:55 | Cat Scan Report ---
CTA head with intravenous contrast CLINICAL HISTORY: carotid stenosis/occlusion with AMS TECHNIQUE: 0.625 mm thick contiguous axial scans were obtained from the skull base to the skull vertex during ra pid bolus administration of intravenous contrast material. Multiplanar reconstructions were produced in the coronal and sagittal planes. In addition 3 plane MIP instructions were produced and reviewed f or this report. The axial source images and reconstructed images were reviewed for this report. All CT scans at this location are performed using CT dose reduction for ALARA by means of automated e xposure control. FINDINGS: Calcified atherosclerotic plaque is observed along the course of the cavernous segments of both inter nal carotid arteries. This does not appear to be associated with a hemodynamically significant stenos is. The caliber of the intracranial vessels is otherwise normal throughout. There is no indication of int racranial stenosis or large vessel occlusion. There is no indication of vasculitis. There is no evidence of aneurysm or other vascular malformation. IMPRESSION: No indication of hemodynamically significant intracranial stenosis on CTA head. CONTRAST DOSE REPORT: Omnipaque 350: 100 ml administered intravenously. Signer Name: Liban Panda MD Signed: 03/04/2019 7:29 PM Workstation Name: [id number] CTA neck without and with intravenous contrast material, with multiplanar reconstruction and with 3 p agustina MIP reconstructions. CLINICAL HISTORY: carotid stenosis/occlusion with AMS TECHNIQUE: Following acquisition of a timing bolus 0.63 mm thick contiguous axial scans were obtained from aorti c arch to the skull base during rapid bolus intravenous contrast infusion. In addition to evaluation of axial source images multiplanar reconstructions were produced and reviewed for this report. Three- dimensional reconstructions were produced utilizing an independent workstation. These were also revie wed for this report. FINDINGS: No abnormalities are seen at the origins of the great vessels. Right carotid artery: The proximal and mid right carotid common artery have an unremarkable appearanc e. Extensively calcified plaque is present at the right carotid bulb. This is associated with a steno sis on the order of 50% severity at the origin of the R ICA. The remainder of the cervical segments o f the R ICA have an unremarkable appearance. Left carotid artery: The proximal and mid left common carotid artery have an unremarkable appearance. Evaluation of the ca rotid bulb is remarkable for extensively calcified atherosclerotic plaque beginning at the carotid bi furcation extending up into the left internal carotid artery over a distance of about 1.2 cm. The max imum degree of stenosis appears to be on the order of 70-80% based on NASCET like criteria. Vertebrobasilar system: There is only intermittent contrast enhancement along the course of the cervical segments of the righ t and left vertebral arteries. At about the C3 level the right vertebral artery assumes a more gab l caliber and shows continuous contrast enhancement up through the foramen magnum to connect with the basilar artery. The intracranial segments of the left vertebral artery are poorly demonstrated. The degree of stenosis, if any, is determined utilizing NASCET like criteria. In this case there is evidence of a 70-80% stenosis at the origin of the LICA secondary to extensively calcified atheroscle rotic plaque. There is a 50% stenosis at the origin of the R ICA secondary to extensively calcified a therosclerotic plaque. The thoracic esophagus is dilated and fluid-filled. This may reflect the presence of dysmotility. I c annot exclude a distal thoracic esophageal stricture or mass. Further evaluation with barium esophagr am could be considered when the patient's condition permits. Evaluation of the nonvascular soft tissu e structures reveal no additional abnormality. There is no indication of cervical lymphadenopathy. No abnormalities are seen along the course of the airway. Visualized portions of the parotid glands and the submandibular salivary glands have a normal appearance. Thyroid gland has a normal appearance. E valuation of the lung apices reveals no evidence of lung nodule. Infiltrate versus scar is seen in th e superior segment of the left lower lobe.. Evaluation of the cervical spine is remarkable for widesp read cervical spondylosis with multifocal neuroforaminal stenosis. The degenerative changes are most pronounced at the C4-5, C5-6, C6-7 and C7-T1 levels. IMPRESSION: 1. Extensively calcified atherosclerotic plaque is present at both carotid bifurcations. There is a 7 0-80% stenosis at the origin of the LICA. There is about a 50% stenosis at the origin of the R ICA. 2. Abnormal vertebral artery circulation as described above. The source of contrast opacification of the distal right vertebral artery and basilar artery is not clearly delineated on this examination. 3. Dilatation of the thoracic esophagus. Further evaluation is advised. Please refer to the above dis cussion. Contrast dose report: Omnipaque 350: 100 ml, administered intravenously All CT examinations performed at this facility utilize modulated dose reduction, iterative reconstruc tion or weight-based dosing, as appropriate, to obtain a radiation dose which is as low as can reason ably be achieved. Signer Name: Liban Panda MD Signed: 03/04/2019 7:50 PM Workstation Name: [id number]
[2019-03-05 04:50] LABS: Basophils % (Auto) 0.4 % (0.0-1.8); Eosinophils # (Auto) 0.2 K/mm3 (0.0-0.4); Eosinophils % (Auto) 3.2 % (0.0-4.3); Hematocrit 36.4 % (35.5-45.6); Hemoglobin 12.3 gm/dl (11.8-15.2); Lymphocytes # (Auto) 1.9 K/mm3 (1.2-5.4); Lymphocytes % (Auto) 24.8 % (13.4-35.0); Mean Corpuscular HGB Conc 34 % (32-34); Mean Corpuscular Volume 84 fl (84-94); Monocytes # (Auto) 0.8 K/mm3 (0.0-0.8); Monocytes % (Auto) 9.7 % (0.0-7.3); Platelet Count 313 K/mm3 (140-440); Red Blood Count 4.33 M/mm3 (3.65-5.03); Red Cell Distribution Width 13.7 % (13.2-15.2)
[2019-03-05 05:06] LABS: BUN/Creatinine Ratio 9; Blood Urea Nitrogen 8 mg/dL (9-20); Calcium 8.8 mg/dL (8.4-10.2); Hemolysis Index 1
--- NOTE | 2019-03-05 08:00 | Progress Note ---
Subjective Date of service: 03/05/19 Interval history: I checked the MRI and there is no acute stroke review of the MRA/CTA shows only atherosclerotic changes w/o stenosis and there is no clot nothing really significant... suspect we are dealing with chronic effects of astrokes prior Objective - Vital Sign Vital Signs - 12hr 03/04/19 03/05/19 03/05/19 20:00 00:15 04:36 Temperature 98 F 97.6 F Pulse Rate 79 101 H Respiratory 20 18 18 Rate Blood Pressure 139/73 141/78 [Right] O2 Sat by Pulse 99 99 Oximetry - Laboratory Findings CBC and BMP: 03/05/19 01:46 03/05/19 04:03 Abnormal Lab Findings: Abnormal Labs 03/02/19 03/02/19 03/02/19 11:28 11:28 11:28 Hgb 11.5 L Hct 34.7 L [place] % (Auto) 10.9 H Sodium 133 L Potassium 5.1 H Chloride 95.3 L BUN Creatinine 1.6 H Glucose Ammonia 24.0 L Albumin 3.6 L HDL Cholesterol 03/03/19 03/04/19 03/05/19 04:24 11:01 01:46 Hgb Hct [place] % (Auto) 9.7 H Sodium 133 L Potassium Chloride 96.6 L BUN Creatinine Glucose 111 H Ammonia Albumin HDL Cholesterol 34 L 03/05/19 04:03 Hgb Hct [place] % (Auto) Sodium 133 L Potassium Chloride 96.9 L BUN 8 L Creatinine Glucose Ammonia Albumin HDL Cholesterol
--- NOTE | 2019-03-05 09:36 | Progress Note ---
Assessment and Plan Assessment and plan: TIA. Stroke ruled out. Follow-up MRI/MRA brain, echocardiogram and carotid Dopplers revealed right internal carotid artery 50-69% and left internal carotid artery occlusion proximally with reconstitution of the mid to distal left ICA. Left ICA stenosis. Vascular surgeon following. Acute metabolic encephalopathy. Resolved. Patient appears to be back to baseline. Acute kidney injury. Etiology secondary to vasomotor nephropathy/dehydration. Baseline creatinine 0.6. Continue IV fluid hydration and follow-up BMP in the morning. Diabetes mellitus type 2. Continue Accu-Cheks and sliding scale insulin. GERD. Continue PPI. History Interval history: Feels better Hospitalist Physical - Physical exam Narrative exam: Gen: Not in acute distress, lying in bed, HEENT: Normocephalic, atraumatic Neck: supple, no JVD Heart: S1 and S2 reg, no murmurs, rubs or gallop Lungs: Clear, no crackles, no rhonchi Abd: soft, non tender, non distended, normal BS, Ext: No edema, no clubbing, no cyanosis Neuro: Awake,alert, Oriented X 3. No focal neuro signs - Constitutional Vitals: Temp Pulse Resp BP Pulse Ox 98.1 F 72 18 115/67 96 03/05/19 08:41 03/05/19 08:41 03/05/19 08:41 03/05/19 08:41 03/05/19 08:41 General appearance: Present: no acute distress Results - Labs CBC & Chem 7: 03/05/19 01:46 03/05/19 04:03 Labs: Laboratory Last Values WBC 7.8 K/mm3 (4.5-11.0) 03/05/19 01:46 RBC 4.33 M/mm3 (3.65-5.03) 03/05/19 01:46 Hgb 12.3 gm/dl (11.8-15.2) 03/05/19 01:46 Hct 36.4 % (35.5-45.6) 03/05/19 01:46 MCV 84 fl (84-94) 03/05/19 01:46 MCH 28 pg (28-32) 03/05/19 01:46 MCHC 34 % (32-34) 03/05/19 01:46 RDW 13.7 % (13.2-15.2) 03/05/19 01:46 Plt Count 313 K/mm3 (140-440) 03/05/19 01:46 Lymph % (Auto) 24.8 % (13.4-35.0) 03/05/19 01:46 [place] % (Auto) 9.7 % (0.0-7.3) H 03/05/19 01:46 Eos % (Auto) 3.2 % (0.0-4.3) 03/05/19 01:46 Baso % (Auto) 0.4 % (0.0-1.8) 03/05/19 01:46 Lymph # 1.9 K/mm3 (1.2-5.4) 03/05/19 01:46 [place] # 0.8 K/mm3 (0.0-0.8) 03/05/19 01:46 Eos # 0.2 K/mm3 (0.0-0.4) 03/05/19 01:46 Baso # 0.0 K/mm3 (0.0-0.1) 03/05/19 01:46 Seg Neutrophils % 61.9 % (40.0-70.0) 03/05/19 01:46 Seg Neutrophils # 4.8 K/mm3 (1.8-7.7) 03/05/19 01:46 PT 13.0 Sec. (12.2-14.9) 03/02/19 11:28 INR 1.01 (0.87-1.13) 03/02/19 11:28 APTT 24.7 Sec. (24.2-36.6) 03/02/19 11:28 Sodium 133 mmol/L (137-145) L 03/05/19 04:03 Potassium 4.1 mmol/L (3.6-5.0) 03/05/19 04:03 Chloride 96.9 mmol/L (98-107) L 03/05/19 04:03 Carbon Dioxide 24 mmol/L (22-30) 03/05/19 04:03 16 mmol/L 03/05/19 04:03 BUN 8 mg/dL (9-20) L 03/05/19 04:03 0.9 mg/dL (0.8-1.5) 03/05/19 04:03 Estimated GFR > 60 ml/min 03/05/19 04:03 9 % 08/13/19 04:03 Glucose 96 mg/dL (75-100) 03/05/19 04:03 POC Glucose 91 (70-105) 03/03/19 12:10 Calcium 8.8 mg/dL (8.4-10.2) 03/05/19 04:03 0.90 mg/dL (0.1-1.2) 03/02/19 11:28 AST 14 units/L (5-40) 03/02/19 11:28 ALT 7 units/L (7-56) 03/02/19 11:28 74 units/L (35-129) 03/02/19 11:28 24.0 umol/L (25-60) L 03/02/19 11:28 < 0.010 ng/mL (0.00-0.029) 03/02/19 11:28 6.8 g/dL (6.3-8.2) 03/02/19 11:28 3.6 g/dL (3.9-5) L 03/02/19 11:28 1.1 % 03/02/19 11:28 Triglycerides 76 mg/dL (2-149) 03/03/19 04:24 Cholesterol 112 mg/dL (50-199) 03/03/19 04:24 75 mg/dL (50-130) 03/03/19 04:24 34 mg/dL (40-59) L 03/03/19 04:24 3.29 % 03/03/19 04:24 TSH 1.010 mlU/mL (0.270-4.200) 03/02/19 11:28 Yellow (Yellow) 03/03/19 07:49 Slightly-cloudy (Clear) 03/03/19 07:49 6.0 (5.0-7.0) 03/03/19 07:49 Ur Specific [place] 1.013 (1.003-1.030) 03/03/19 07:49 <15 mg/dl mg/dL (Negative) 03/03/19 07:49 Neg mg/dL (Negative) 03/03/19 07:49 Neg mg/dL (Negative) 03/03/19 07:49 Lg (Negative) 03/03/19 07:49 Neg (Negative) 03/03/19 07:49 Neg (Negative) 03/03/19 07:49 2.0 mg/dL (<2.0) 03/03/19 07:49 Ur Leukocyte Esterase Lg (Negative) 03/03/19 07:49 5.0 /HPF (0.0-6.0) 03/03/19 07:49 33.0 /HPF (0.0-6.0) 03/03/19 07:49 U Epithel Cells (Auto) 2.0 /HPF (0-13.0) 03/03/19 07:49 1+ /HPF (Negative) 03/03/19 07:49 Calcium Oxalate Crystal Few 03/03/19 07:49 Active Medications - Current Medications Current Medications: Generic Name Dose Route Start Last Admin Trade Name Freq PRN Reason Stop Dose Admin Acetaminophen 650 mg 03/02/19 18:51 Tylenol PO Q4H PRN Pain, Mild (1-3) Albuterol 2.5 mg 03/02/19 18:51 Proventil IH Q3H PRN Shortness Of Breath Aspirin 325 mg 03/03/19 10:00 03/04/19 09:22 Aspirin PO 325 mg QDAY YOHANA Administration Atorvastatin Calcium 40 mg 03/02/19 22:00 03/04/19 22:08 Lipitor PO 40 mg QHS YOHANA Administration Bisacodyl 10 mg 03/02/19 18:51 Dulcolax GA QDAY PRN Constipation Folic Acid 1 mg 03/03/19 10:00 03/04/19 09:22 Folvite PO 1 mg DAILY YOHANA Administration Heparin Sodium (Porcine) 5,000 unit 03/03/19 10:00 03/04/19 22:08 Heparin SUB-Q 5,000 unit Q12HR YOHANA Administration Magnesium Hydroxide 30 ml 03/02/19 18:51 Milk Of Magnesia PO Q4H PRN Constipation Memantine 5 mg 03/03/19 10:00 03/04/19 09:22 Namenda PO 5 mg QDAY YOHANA Administration Metoclopramide HCl 10 mg 03/02/19 18:51 Reglan PO Q6H PRN Nausea And Vomiting Metoclopramide HCl 10 mg 03/03/19 10:00 03/04/19 09:22 Reglan PO 10 mg QDAY YOHANA Administration Multivitamins 5 ml 03/03/19 10:00 03/04/19 09:22 Centrum Liq PO 5 ml QDAY YOHANA Administration Ondansetron HCl 4 mg 03/02/19 18:51 Zofran IV Q8H PRN Nausea And Vomiting Pantoprazole Sodium 20 mg 03/03/19 10:00 03/04/19 09:22 Protonix PO 20 mg QDAY YOHANA Administration Promethazine HCl 25 mg 03/02/19 18:51 Phenergan GA Q6H PRN Nausea And Vomiting Sertraline HCl 75 mg 03/03/19 10:00 03/04/19 09:22 Zoloft PO 75 mg QDAY YOHANA Administration Sodium Chloride 10 ml 03/02/19 18:51 Sodium Chloride Flush Syringe 10 Ml IV PRN PRN LINE FLUSH Thiamine HCl 100 mg 03/03/19 10:00 03/04/19 09:22 Vitamin B-1 PO 100 mg QDAY YOHANA Administration
[2019-03-05] MEDS: HEPARIN SUB-Q SCH ×2 (10:30→21:33)
[2019-03-05] MEDS: NAMENDA PO SCH (11:27)
[2019-03-05] MEDS: Centrum Liq PO SCH (11:27)
[2019-03-05] MEDS: ZOLOFT PO SCH (11:28)
[2019-03-05] MEDS: ASPIRIN PO SCH (11:28)
[2019-03-05] MEDS: VITAMIN B-1 PO SCH (11:29)
[2019-03-05] MEDS: FOLVITE PO SCH (11:29)
[2019-03-05] MEDS: REGLAN PO SCH (11:35)
[2019-03-05] MEDS: PROTONIX PO SCH (11:35)
[2019-03-05] MEDS: PREVACID SOLUTAB FEEDTUBE SCH (12:57)
[2019-03-06 08:09] VITALS: BP 127/59
[2019-03-06] MEDS: ASPIRIN PO SCH (10:14)
[2019-03-06] MEDS: PREVACID SOLUTAB FEEDTUBE SCH (10:14)
[2019-03-06] MEDS: ZOLOFT PO SCH (10:14)
[2019-03-06] MEDS: VITAMIN B-1 PO SCH (10:14)
[2019-03-06] MEDS: Centrum Liq PO SCH (10:15)
[2019-03-06] MEDS: REGLAN PO SCH (10:15)
[2019-03-06] MEDS: FOLVITE PO SCH (10:15)
[2019-03-06] MEDS: NAMENDA PO SCH (10:15)
[2019-03-06] MEDS: HEPARIN SUB-Q SCH (10:16)
--- NOTE | 2019-03-06 10:23 | Progress Note ---
Assessment and Plan Given the findings on the patient's CTA, would recommend optimizing the patient's medical therapy with antiplatelet, a statin and good blood pressure control. Per reports from the daughter, the patient previously had stroke secondary to hypertension. The patient in follow-up in our office in 2 weeks and we will schedule him for repeat carotid ultrasound in 6 months to document the stability of this disease. Subjective Date of service: 03/06/19 Principal diagnosis: altered mental status Interval history: Patient with a history of prior CVAs who presents with altered mental status there was transient in nature and has now returned to baseline. The patient has underlying quadriparesis. Ultrasound of his carotids was performed which demo nstrates occlusion of the left ICA. A CTA was then performed which demonstrates occlusion of bilateral vertebral arteries with reconstitution through collaterals and approximately 75% stenosis of the right internal carotid artery and occlusion of the left internal carotid artery at its origin. Objective - Constitutional Vitals: Vital Signs - 12hr 03/05/19 03/05/19 03/06/19 23:22 23:23 04:47 Temperature 98.2 F Pulse Rate 88 88 Respiratory 18 20 Rate Blood Pressure 121/57 120/65 O2 Sat by Pulse 94 95 Oximetry 03/06/19 03/06/19 04:48 07:33 Temperature 97.5 F L 98.5 F Pulse Rate 73 Respiratory 18 Rate Blood Pressure 127/59 O2 Sat by Pulse 94 Oximetry General appearance: Present: no acute distress - EENT Eyes: EOM intact ENT: hearing intact - Neck Neck: supple - Respiratory Respiratory effort: normal - Gastrointestinal General gastrointestinal: Present: deferred Rectal Exam: deferred - Genitourinary Male genitourinary: deferred - Musculoskeletal Musculoskeletal: generalized weakness - Psychiatric Psychiatric: cooperative - Labs CBC & Chem 7: 03/05/19 01:46 03/05/19 04:03 Medications & Allergies - Medications Allergies/Adverse Reactions: Allergies No Known Allergies Allergy (Verified 01/11/15 15:36) Home Medications: Home Medications Medication Instructions Recorded Confirmed Last Taken Type Aspirin 325 mg PO QDAY 01/11/15 03/03/19 Unknown History Atorvastatin 20 mg PO QDAY 01/11/15 03/03/19 Unknown History Dulcolax tab 5 mg PO QHS 01/11/15 03/03/19 Unknown History Folic Acid 1 mg PO QDAY 01/11/15 03/03/19 Unknown History HumaLOG 1 dose SQ 3XW 01/11/15 03/03/19 Unknown History Hydrochlorothiazide 12.5 mg PO QDAY 01/11/15 03/03/19 Unknown History Metoclopramide 10 mg PO QDAY 01/11/15 03/03/19 Unknown History Multivitamin Liquid 5 ml PO QDAY 01/11/15 03/03/19 Unknown History Omeprazole 20 mg PO QDAY 01/11/15 03/03/19 Unknown History Thiamine 100 mg PO QDAY 01/11/15 03/03/19 Unknown History Zoloft 75 mg PO QDAY 01/11/15 03/03/19 Unknown History Memantine [Namenda] 5 mg PO QDAY #30 tablet 01/12/15 03/03/19 Unknown Rx Active Medications: Generic Name Dose Route Start Last Admin Trade Name Freq PRN Reason Stop Dose Admin Acetaminophen 650 mg 03/02/19 18:51 Tylenol PO Q4H PRN Pain, Mild (1-3) Albuterol 2.5 mg 03/02/19 18:51 Proventil IH Q3H PRN Shortness Of Breath Aspirin 325 mg 03/03/19 10:00 03/06/19 10:14 Aspirin PO 325 mg QDAY YOHANA Administration Atorvastatin Calcium 40 mg 03/02/19 22:00 03/05/19 21:33 Lipitor PO 40 mg QHS YOHANA Administration Bisacodyl 10 mg 03/02/19 18:51 Dulcolax [place] QDAY PRN Constipation Folic Acid 1 mg 03/03/19 10:00 03/06/19 10:15 Folvite PO 1 mg DAILY YOHANA Administration Heparin Sodium (Porcine) 5,000 unit 03/03/19 10:00 03/06/19 10:16 Heparin SUB-Q 5,000 unit Q12HR YOHANA Administration Lansoprazole 30 mg 03/05/19 12:00 03/06/19 10:14 Prevacid Solutab FEEDTUBE 30 mg QDAY YOHANA Administration Magnesium Hydroxide 30 ml 03/02/19 18:51 Milk Of Magnesia PO Q4H PRN Constipation Memantine 5 mg 03/03/19 10:00 03/06/19 10:15 Namenda PO 5 mg QDAY YOHANA Administration Metoclopramide HCl 10 mg 03/02/19 18:51 Reglan PO Q6H PRN Nausea And Vomiting Metoclopramide HCl 10 mg 03/03/19 10:00 03/06/19 10:15 Reglan PO 10 mg QDAY YOHANA Administration Multivitamins 5 ml 03/03/19 10:00 03/06/19 10:15 Centrum Liq PO 5 ml QDAY YOHANA Administration Ondansetron HCl 4 mg 03/02/19 18:51 Zofran IV Q8H PRN Nausea And Vomiting Promethazine HCl 25 mg 03/02/19 18:51 Phenergan [place] Q6H PRN Nausea And Vomiting Sertraline HCl 75 mg 03/03/19 10:00 03/06/19 10:14 Zoloft PO 75 mg QDAY YOHANA Administration Sodium Chloride 10 ml 03/02/19 18:51 Sodium Chloride Flush Syringe 10 Ml IV PRN PRN LINE FLUSH Thiamine HCl 100 mg 03/03/19 10:00 03/06/19 10:14 Vitamin B-1 PO 100 mg QDAY YOHANA Administration
--- NOTE | 2019-03-06 15:11 | Discharge Summary ---
Providers - Providers Date of Admission: 03/02/19 18:51 Date of discharge: 03/06/19 Attending physician: JOSE HERNANDES 03/02/19 18:51 Occupational Therapy Evaluate and Treat [CONS] Routine Comment: Reason For Exam: Neuro deficits Physical Therapy Evaluation and Treat [CONS] Routine Comment: Reason For Exam: Neuro deficits 03/03/19 07:38 Consult to Physician [CONS] Routine Comment: Consulting Provider: YOEL PICKERING Physician Instructions: Reason For Exam: cva 03/04/19 14:32 Consult to Physician [CONS] Routine Comment: Consulting Provider: IDA STOKES Physician Instructions: Reason For Exam: ica stenosis Primary care physician: MAMADOU RAO Hospitalization Condition: Fair Disposition: DC-01 TO HOME OR SELFCARE Core Measure Documentation - Palliative Care Palliative Care/ Comfort Measures: Not Applicable - Core Measures Any of the following diagnoses?: none Exam - Constitutional Vitals: Temp Pulse Resp BP Pulse Ox 98.5 F 72 18 127/59 94 03/06/19 07:33 03/06/19 08:00 03/06/19 08:00 03/06/19 07:33 03/06/19 08:00 Plan Activity: advance as tolerated Diet: other (Pureed diet) Plan of Treatment: 1.Follow up with PCP in 1 week. 2.Follow up with Dr. Cruz, Urology to evaluate for high Urinary residual in 1 week 3.Follow up with Dr. Lake , Vasc Surg in 1-2 months Assessment: 1.TIA Follow up with: MAMADOU RAO MD [Primary Care Provider] - 3-5 Days Prescriptions: Aspirin 325 mg PO QDAY #30 Folic Acid [Folvite] 1 mg PO DAILY #30 tablet AtorvaSTATin [Lipitor] 40 mg PO QHS #30 tablet
--- NOTE | 2019-03-06 16:56 | XRay Report ---
ABDOMEN 1 VIEW 4:38 PM INDICATION / CLINICAL INFORMATION: Abdominal distention. COMPARISON: None available. FINDINGS: TUBES / LINES: None. BOWEL GAS PATTERN: There is gas scattered throughout the large and small bowel without significant di latation. There is no evidence of mass effect. FREE AIR / EXTRALUMINAL GAS: None seen. ADDITIONAL FINDINGS: There are atherosclerotic calcifications involving the aorta and its branches wi thout visible aneurysm. Mild spondylosis is noted. IMPRESSION: No acute abnormality. Signer Name: Rodolfo Elder MD Signed: 03/06/2019 4:52 PM Workstation Name: [id number]
== END 2019-03-06 18:30 | DRG 70 ==
LOC: ED 10:52 → 4A 18:51
PROVIDERS: ADMIT Internal Medicine; ATTEND Internal Medicine
DX: G93.41 Metabolic encephalopathy (principal); N17.0 Acute kidney failure with tubular necrosis; G82.50 Quadriplegia, unspecified; I69.354 Hemiplegia and hemiparesis following cerebral infarction affecting left non-dominant side; K21.9 Gastro-esophageal reflux disease without esophagitis; E11.9 Type 2 diabetes mellitus without complications; E78.5 Hyperlipidemia, unspecified; I10 Essential (primary) hypertension; E87.5 Hyperkalemia; E86.0 Dehydration; I65.23 Occlusion and stenosis of bilateral carotid arteries; Z79.4 Long term (current) use of insulin
CPT/HCPCS: 36415; 70450; 70496; 70498; 70544; 70547; 70551; 71045; 74018; 80048; 80053; 80061; 81001; 82140; 82962; 84443; 84484; 85025; 85610; 85730; 93005; 93010; 93306; 93880; G0378; A9270-GY; J1644; J7040; Q9967